=== PATIENT | male | born 1975 | race Caucasian/White ===

== ENCOUNTER 2017-02-07 09:09 | Emergency (ER) | payer OTHER ==
[~2017-02-07] VITALS: Ht 177.8 cm; Wt 101.4 kg
[2017-02-07 10:42] VITALS: BP 135/99
== END 2017-02-07 10:51 | disposition home or self-care (01) ==
LOC: EME 09:09
PROC: 0HQDXZZ Repair Right Lower Arm Skin, External Approach (ICD-10-PCS; principal; 2017-02-07)
DX: S51.011A Laceration without foreign body of right elbow, initial encounter (principal); W03.XXXA Other fall on same level due to collision with another person, initial encounter; Y92.239 Unspecified place in hospital as the place of occurrence of the external cause; Y99.0 Civilian activity done for income or pay; F17.200 Nicotine dependence, unspecified, uncomplicated
CPT/HCPCS: 99281; 99284

== ENCOUNTER 2017-07-13 11:41 | Emergency (ER) | payer OTHER ==
[~2017-07-13] VITALS: Ht 180.3 cm; Wt 100.0 kg
[2017-07-13 13:12] LABS: BASOPHIL COUNT 0.1 K/uL (0-0.1); EOSINOPHIL (%) 2.9 % (0-5); EOSINOPHIL COUNT 0.3 K/uL (0-0.3); HEMATOCRIT 46.2 % (38.0-50.0); IMMATURE GRANULOCYTE (%) 0.3 % (0.0-0.7); INSTRUMENT ABS NEUTROPHIL CT 5.4 K/uL; LYMPHOCYTE COUNT 3.9 K/uL (1.0-2.8); MCHC 33.1 G/DL (30.0-36.0); MCV 87.7 FL (86-99); MEAN PLAT.VOLUME 8.9 uM^3 (9.0-12.4); MONOCYTE (%) 6.5 % (3-12); MONOCYTE COUNT 0.7 K/uL (0-0.8); NEUTROPHIL (%) 52.1 % (45-76); NEUTROPHIL COUNT 5.4 K/uL (1.8-6.4); PLATELET COUNT 363 K/uL (156-360); RBC DIS.WIDTH-CV 13.7 % (11.8-14.6); RBC DIS.WIDTH-SD 44.4 % (39-53); RED BLOOD COUNT 5.27 M/uL (4.00-5.50); WHITE BLOOD COUNT 10.4 K/uL (4.1-10.2)
[2017-07-13 13:25] LABS: CHLORIDE 106 mEq/L (99-109); POTASSIUM 4.1 mEq/L (3.7-5.4); SODIUM 140 mEq/L (136-147)
[2017-07-13 13:28] LABS: GLUCOSE 91 mg/dL (70-99)
[2017-07-13 13:29] LABS: ANION GAP 11 MEQ/L (2-14)
[2017-07-13 13:30] LABS: TOTAL BILIRUBIN 0.6 mg/dL (0.0-1.0)
[2017-07-13 13:31] LABS: ALKALINE PHOSPHATASE 64 IU/L (3-129); GFR ESTIMATE (CALCULATED) > 59 mL/min/ (58.99-99999)
[2017-07-13 13:32] LABS: UREA NITROGEN (BUN) 14 mg/dL (9-23)
[2017-07-13 14:07] LABS: ANTI-HEPATITIS B CORE (TOTAL) Nonreactive; HBCT INDEX 0.09
[2017-07-13] MEDS ORDERED: AUGMENTIN875 MG PO (14:07)
[2017-07-13 14:32] VITALS: BP 132/73
[2017-07-15 11:58] LABS: HBSG INDEX 0.14; HPCA INDEX 0.13
[2017-07-15 11:59] LABS: AHBS INDEX 0.25; HEPATITIS B SURFACE ANTIBODY Nonreactive
[2017-07-15 12:00] LABS: HIV INDEX 0.08; HIV-1/2 AB/AG COMBO Nonreactive
== END 2017-07-13 14:35 | disposition home or self-care (01) ==
LOC: EME 11:41
PROVIDERS: Physician Assistant
DX: S61.432A Puncture wound without foreign body of left hand, initial encounter (principal); Y04.1XXA Assault by human bite, initial encounter; Y99.0 Civilian activity done for income or pay; Y92.238 Other place in hospital as the place of occurrence of the external cause
CPT/HCPCS: 73130; 80053; 85025; 86703; 86704; 86706; 86803; 87340; 99281; 99284

== ENCOUNTER 2017-07-14 07:33 | Emergency (ER) | payer OTHER ==
[~2017-07-14] VITALS: Ht 180.3 cm; Wt 103.5 kg
[~2017-07-14 07:33] MED LIST: AUGMENTIN875 MG PO
[2017-07-14 08:07] VITALS: BP 120/88
== END 2017-07-14 08:08 | disposition home or self-care (01) ==
LOC: EME 07:33
DX: S60.572D Other superficial bite of hand of left hand, subsequent encounter (principal); Y04.1XXD Assault by human bite, subsequent encounter; E78.5 Hyperlipidemia, unspecified; Z72.0 Tobacco use
CPT/HCPCS: 99281; 99283